=== PATIENT | female | born 1970 | race Caucasian/White ===

== ENCOUNTER 2019-06-14 15:12 | Emergency (ER) | payer SELFPAY ==
--- NOTE | 2019-06-14 15:40 | EDM.PDOC ---
ED HPI GENERAL MEDICAL PROBLEM - General Stated Complaint: lower ABD PAIN Time Seen by Provider: 06/14/19 15:12 Source of Information: Reports: Patient History Limitations: Reports: No Limitations - History of Present Illness INITIAL COMMENTS - FREE TEXT/NARRATIVE: 49 y.o.w.f with a h/o gastric bypass surgery in the distant past, came to the ED due to pain at her mid lower abd. 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 No Trauma. + No N/V/d, no other acute med issues BP 146/82 RR 17 Pulse ox 97% on RA Temp 36.8 Pulse 72 Onset Date: 06/14/19 Onset Time: 08:00 Duration: Hour(s):, Intermittent Location: Reports: Pelvis Quality: Reports: Ache, Burning Severity: Moderate Improves with: Reports: Medication Worsens with: Reports: Other Context: Reports: Other Associated Symptoms: Reports: Other (lower abd.dyscomfort) lower abd Pain Score (Numeric/FACES): 4 - Related Data Allergies Allergy/AdvReac Type Severity Reaction Status Date / Time No Known Allergies Allergy Verified 06/14/19 15:48 Home Meds: Home Meds Ciprofloxacin HCl [Cipro] 500 mg PO BID #20 tablet 06/14/19 [Rx] Cyanocobalamin (Vitamin B-12) [Vitamin B-12] 0 mcg PO DAILY 06/14/19 [History] Iron 0 mg PO DAILY 06/14/19 [History] Multivitamin [Multivitamins] 1 each PO DAILY 06/14/19 [History] Phenazopyridine HCl [Pyridium] 100 mg PO TID #9 tablet 06/14/19 [Rx] ED ROS GENERAL - Review of Systems Review Of Systems: See Below Constitutional: Reports: No Symptoms HEENT: Reports: No Symptoms Respiratory: Reports: No Symptoms Cardiovascular: Reports: No Symptoms Endocrine: Reports: No Symptoms GI/Abdominal: Reports: Abdominal Pain : Reports: No Symptoms Musculoskeletal: Reports: No Symptoms Skin: Reports: No Symptoms Neurological: Reports: No Symptoms Psychiatric: Reports: No Symptoms Hematologic/Lymphatic: Reports: No Symptoms Immunologic: Reports: No Symptoms ED EXAM, GI/ABD - Physical Exam Exam: See Below Exam Limited By: No Limitations General Appearance: Alert, WD/WN, Mild Distress Eyes: Bilateral: Normal Appearance Ears: Normal External Exam Nose: Normal Inspection Throat/Mouth: Normal Inspection, Normal Lips, Normal Voice, No Airway Compromise Head: Atraumatic, Normocephalic Neck: Normal Inspection, Supple, Non-Tender, Full Range of Motion Respiratory/Chest: No Respiratory Distress, Lungs Clear, Normal Breath Sounds, No Accessory Muscle Use, Chest Non-Tender Cardiovascular: Normal Peripheral Pulses, Regular Rate, Rhythm, No Edema, No Gallop GI/Abdominal Exam: Normal Bowel Sounds, No Organomegaly, No Distention, No Abnormal Bruit, Pelvis Stable, Tender (suprapubic tenderness) (Female) Exam: Deferred Rectal (Female) Exam: Deferred Back Exam: Normal Inspection, Full Range of Motion Extremities: Normal Inspection, Normal Range of Motion Neurological: Alert, Oriented, CN II-XII Intact, Normal Cognition, Normal Gait Psychiatric: Normal Affect, Normal Mood Skin Exam: Warm, Dry, Intact, Normal Color, No Rash Lymphatic: No Adenopathy Course - Vital Signs Text/Narrative:: 49 y.o.w.f with a h/o gastric bypass surgery in the distant past, came to the ED due to pain at her mid lower abd. 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 No Trauma. + No N/V/d, no other acute med issues BP 146/82 RR 17 Pulse ox 97% on RA Temp 36.8 Pulse 72 PE: WNWD =WF with lower abd. pain Labs": UA pos for UTI Impression: UTI Tx: Pyridium, Levofloxacin Reexam: Improved Plan: D/C with instructions Last Recorded V/S: Last Vital Signs Temp 36.7 C 06/14/19 16:15 Pulse 71 06/14/19 16:15 Resp 16 06/14/19 16:15 BP 123/77 06/14/19 16:15 Pulse Ox 98 06/14/19 16:15 - Orders/Labs/Meds Labs: Laboratory Tests 06/14/19 06/14/19 Range/Units 15:41 15:41 Urine Color Yellow (YELLOW) Urine Appearance Clear (CLEAR) Urine pH 6.5 (5.0-6.5) Ur Specific [place] 1.015 (1.010-1.025) Urine Protein Negative (NEGATIVE) mg/dL Urine Glucose (UA) Normal (NORMAL) mg/dL Urine Ketones Negative (NEGATIVE) mg/dL Urine Occult Blood Negative (NEGATIVE) Urine Nitrite Negative (NEGATIVE) Urine Bilirubin Small H (NEGATIVE) Urine Urobilinogen 1 H (NEGATIVE) mg/dL Ur Leukocyte Esterase Moderate H (NEGATIVE) Urine RBC 0-5 (0-5) Urine WBC 5-10 H (0-5) Ur Squamous Epith Cells Few H (NS,R,O) Urine Bacteria Few H (NS) Urine HCG, Qual Negative (NEGATIVE) Meds: Medications Discontinued Medications Generic Name Dose Route Start Last Admin Trade Name Annabella PRN Reason Stop Dose Admin Levofloxacin 500 mg 06/14/19 16:06 06/14/19 16:22 Levaquin PO 06/14/19 16:07 500 mg ONETIME ONE Administration Phenazopyridine HCl 95 mg 06/14/19 19:00 Urinary Pain Relief PO TIDPC TASHA Phenazopyridine HCl 95 mg 06/14/19 16:19 06/14/19 16:22 Urinary Pain Relief PO 06/14/19 16:20 95 mg ONETIME ONE Administration Departure - Departure Time of Disposition: 16:13 Disposition: Home, Self-Care 01 Condition: Good Clinical Impression: UTI (urinary tract infection) Qualifiers: Urinary tract infection type: acute cystitis Hematuria presence: without hematuria Qualified Code(s): N30.00 - Acute cystitis without hematuria - Discharge Information Prescriptions: Ciprofloxacin HCl [Cipro] 500 mg PO BID #20 tablet Phenazopyridine HCl [Pyridium] 100 mg PO TID #9 tablet Instructions: Urinary Tract Infection, Adult, [id number] Referrals: PCP,None [Primary Care Provider] - Forms: ED Department Discharge Additional Instructions: Please increase water intake, please take the meds as recommended, please f/u, come back if your symptoms get worse acutely
[2019-06-14] MEDS ORDERED: Levofloxacin 500 MG Tab PO ONE (16:06)
[2019-06-14] MEDS ORDERED: Phenazopyridine 95 MG Tab PO ONE (16:19)
[2019-06-14] MEDS ORDERED: Phenazopyridine 95 MG Tab PO SCH (19:00)
== END 2019-06-14 16:24 | disposition home or self-care (01) ==
LOC: FB.ED 15:12
DX: N30.00 Acute cystitis without hematuria (principal); Z79.899 Other long term (current) drug therapy
CPT/HCPCS: 81001; 81025; 99283; 99284; A9270

== ENCOUNTER 2019-08-06 17:13 | Emergency (ER) | payer MEDICAID ==
[2019-08-06] MEDS ORDERED: HYDROmorphone 2 MG/ML SDV IVPUSH ONE (17:53)
[2019-08-06] MEDS ORDERED: Ketorolac 30 MG/ML SDV IVPUSH ONE (17:54)
[2019-08-06] MEDS ORDERED: Ondansetron 4 MG/2 ML SDV IVPUSH ONE ×2 (17:54→18:32)
[2019-08-06] MEDS ORDERED: Potassium Chloride 20 MEQ Tab.ER PO ONE (18:13)
--- NOTE | 2019-08-06 18:15 | EDM.PDOC ---
ED HPI GENERAL MEDICAL PROBLEM - General Chief Complaint: Abdominal Pain Stated Complaint: PAIN IN STOMACH Time Seen by Provider: 08/06/19 18:00 Source of Information: Reports: Patient History Limitations: Reports: No Limitations - History of Present Illness INITIAL COMMENTS - FREE TEXT/NARRATIVE: Presents with low abdominal/pelvic pain x 1.5 years, low-grade initially, became worse in February 2019. The pain is described as constant menstrual pain, the severity of which waxes and wanes, and radiates to the lower back. She denies vaginal bleeding at this time. The patient was treated at [facility] ED last night. A pelvic exam was performed. An ultrasound revealed good flow to both ovaries, bilateral complex adnexal lesions and inhomogeneous uterine echotexture possibly due to adenomyosis. No lab work was done. She was prescribed Percocet 5/325 (#6 tabs) but the pain is not controlled with one tablet. 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 Denies: Appendectomy, Cholecystectomy Female Surgical History: Reports: Tubal Ligation (2012) Social & Family History - Tobacco Use Smoking Status *Q: Never Smoker - Alcohol Use Alcohol Use History: No ED ROS GENERAL - Review of Systems Review Of Systems: Comprehensive ROS is negative, except as noted in HPI. ED EXAM, GI/ABD - Physical Exam Exam: See Below Exam Limited By: No Limitations General Appearance: Alert, WD/WN, No Apparent Distress Ears: Normal External Exam Nose: Normal Inspection Throat/Mouth: No Airway Compromise Head: Atraumatic, Normocephalic Neck: Full Range of Motion Respiratory/Chest: No Respiratory Distress, Lungs Clear, Normal Breath Sounds Cardiovascular: Regular Rate, Rhythm, No Murmur GI/Abdominal Exam: Normal Bowel Sounds, Soft, No Distention, Tender (moderate suprapubic, RLQ and LLQ). No: Guarding, Rebound Back Exam: Full Range of Motion. No: CVA Tenderness (R), CVA Tenderness (L) Extremities: Normal Range of Motion Neurological: Alert, Normal Cognition, No Motor/Sensory Deficits Psychiatric: Normal Affect, Normal Mood Skin Exam: Warm, Dry, Intact Course - Vital Signs Last Recorded V/S: Last Vital Signs Temp 36.2 C 08/06/19 17:20 Pulse 66 08/06/19 17:20 Resp 16 08/06/19 17:20 BP 157/84 H 08/06/19 17:20 Pulse Ox 100 08/06/19 17:20 - Orders/Labs/Meds Orders: Active Orders 24 hr Category Date Time Status Abdomen Pelvis w Cont [CT] Stat Exams 08/06/19 18:14 Taken CHLAMYDIA/GC AMPLIFICATION Stat Lab 08/06/19 17:40 Received Labs: Laboratory Tests 08/06/19 08/06/19 08/06/19 Range/Units 17:35 17:35 17:35 WBC 11.0 (4.5-12.0) X10-3/uL RBC 4.80 (3.23-5.20) x10(6)uL Hgb 13.8 (11.5-15.5) g/dL Hct 41.5 (30.0-51.3) % MCV 86.4 (80-96) fL MCH 28.8 (27.7-33.6) pg MCHC 33.3 (32.2-35.4) g/dL RDW 13.2 (11.5-15.5) % Plt Count 368 (125-369) X10(3)uL MPV 8.6 (7.4-10.4) fL Neut % (Auto) 50.7 (46-82) % Lymph % (Auto) 38.4 H (13-37) % [place] % (Auto) 6.9 (4-12) % Eos % (Auto) 2 (1.0-5.0) % Baso % (Auto) 2 (0-2) % Neut # (Auto) 5.5 (1.6-8.3) # Lymph # (Auto) 4.2 (0.6-5.0) # [place] # (Auto) 0.8 (0.0-1.3) # Eos # (Auto) 0.3 (0.0-0.8) # Baso # (Auto) 0.2 (0.0-0.2) # Sodium 139 (135-145) mmol/L Potassium 3.0 L (3.5-5.3) mmol/L Chloride 103 (100-110) mmol/L Carbon Dioxide 23 (21-32) mmol/L BUN 10 (7-18) mg/dL Creatinine 0.8 (0.55-1.02) mg/dL Est Cr Clr Drug Dosing TNP Estimated GFR (MDRD) > 60 (>60) BUN/Creatinine Ratio 12.5 (9-20) Glucose 109 (80-116) mg/dL Calcium 9.0 (8.6-10.2) mg/dL Magnesium 1.7 L (1.8-2.5) mg/dL Total Bilirubin 0.5 (0.1-1.3) mg/dL AST 17 (5-25) IU/L ALT 18 (12-36) U/L Alkaline Phosphatase 76 (56-112) IU/L Total Protein 7.3 (6.0-8.0) g/dL Albumin 3.8 (3.5-5.2) g/dL Globulin 3.5 g/dL Albumin/Globulin Ratio 1.1 Amylase 59 (25-115) U/L Urine Color (YELLOW) Urine Appearance (CLEAR) Urine pH (5.0-6.5) Ur Specific [place] (1.010-1.025) Urine Protein (NEGATIVE) mg/dL Urine Glucose (UA) (NORMAL) mg/dL Urine Ketones (NEGATIVE) mg/dL Urine Occult Blood (NEGATIVE) Urine Nitrite (NEGATIVE) Urine Bilirubin (NEGATIVE) Urine Urobilinogen (NEGATIVE) mg/dL Ur Leukocyte Esterase (NEGATIVE) Urine RBC (0-5) Urine WBC (0-5) Ur Squamous Epith Cells (NS,R,O) Urine Bacteria (NS) Urine HCG, Qual (NEGATIVE) 11/15/19 11/15/19 Range/Units 17:40 17:40 WBC (4.5-12.0) X10-3/uL RBC (3.23-5.20) x10(6)uL Hgb (11.5-15.5) g/dL Hct (30.0-51.3) % MCV (80-96) fL MCH (27.7-33.6) pg MCHC (32.2-35.4) g/dL RDW (11.5-15.5) % Plt Count (125-369) X10(3)uL MPV (7.4-10.4) fL Neut % (Auto) (46-82) % Lymph % (Auto) (13-37) % [place] % (Auto) (4-12) % Eos % (Auto) (1.0-5.0) % Baso % (Auto) (0-2) % Neut # (Auto) (1.6-8.3) # Lymph # (Auto) (0.6-5.0) # [place] # (Auto) (0.0-1.3) # Eos # (Auto) (0.0-0.8) # Baso # (Auto) (0.0-0.2) # Sodium (135-145) mmol/L Potassium (3.5-5.3) mmol/L Chloride (100-110) mmol/L Carbon Dioxide (21-32) mmol/L BUN (7-18) mg/dL Creatinine (0.55-1.02) mg/dL Est Cr Clr Drug Dosing Estimated GFR (MDRD) (>60) BUN/Creatinine Ratio (9-20) Glucose (80-116) mg/dL Calcium (8.6-10.2) mg/dL Magnesium (1.8-2.5) mg/dL Total Bilirubin (0.1-1.3) mg/dL AST (5-25) IU/L ALT (12-36) U/L Alkaline Phosphatase (56-112) IU/L Total Protein (6.0-8.0) g/dL Albumin (3.5-5.2) g/dL Globulin g/dL Albumin/Globulin Ratio Amylase (25-115) U/L Urine Color Yellow (YELLOW) Urine Appearance Clear (CLEAR) Urine pH 5.0 (5.0-6.5) Ur Specific [place] 1.010 (1.010-1.025) Urine Protein Negative (NEGATIVE) mg/dL Urine Glucose (UA) Normal (NORMAL) mg/dL Urine Ketones 15 H (NEGATIVE) mg/dL Urine Occult Blood Negative (NEGATIVE) Urine Nitrite Negative (NEGATIVE) Urine Bilirubin Negative (NEGATIVE) Urine Urobilinogen Normal (NEGATIVE) mg/dL Ur Leukocyte Esterase Negative (NEGATIVE) Urine RBC 0-5 (0-5) Urine WBC 0-5 (0-5) Ur Squamous Epith Cells Few H (NS,R,O) Urine Bacteria Moderate H (NS) Urine HCG, Qual Negative (NEGATIVE) Meds: Medications Discontinued Medications Generic Name Dose Route Start Last Admin Trade Name Freq PRN Reason Stop Dose Admin Hydromorphone HCl 1 mg 08/06/19 17:53 08/06/19 18:01 Dilaudid IVPUSH 08/06/19 17:54 1 mg ONETIME ONE Administration Iopamidol 100 ml 08/06/19 18:26 08/06/19 18:51 Isovue-370 (76%) IV 08/06/19 18:27 100 ml . DIRECTED ONE Administration Ketorolac Tromethamine 15 mg 08/06/19 17:54 08/06/19 17:59 Toradol IVPUSH 08/06/19 17:55 15 mg ONETIME ONE Administration Ondansetron HCl 4 mg 08/06/19 17:54 08/06/19 18:01 Zofran IVPUSH 08/06/19 17:55 4 mg ONETIME ONE Administration Ondansetron HCl 4 mg 08/06/19 18:32 08/06/19 18:36 Zofran IVPUSH 08/06/19 18:33 4 mg ONETIME ONE Administration Potassium Chloride 40 meq 08/06/19 18:13 08/06/19 18:44 Klor-Con M20 PO 08/06/19 18:14 40 meq ONETIME ONE Administration Promethazine HCl 25 mg 08/06/19 19:07 08/06/19 19:31 Phenergan IM 08/06/19 19:08 25 mg ONETIME ONE Administration - Radiology Interpretation Free Text/Narrative:: CT Abd/Pelvis w/ IV contrast: Circumscribed fluid collection in the pelvis measuring 7.5 cm of unclear etiology, does not appear infectious. Possible etiology includes mesenteric or urachal cyst. No bowel obstruction. Enlarged ovaries. (per Dr. Mclain) - Re-Assessments/Exams Free Text/Narrative Re-Assessment/Exam: 08/06/19 19:56 Pain improved after Dilaudid 1mg IV and Toradol 15mg IV. Nausea improved after Phenergan 25mg IM (no improvement after Zofran 8mg IV). Departure - Departure Time of Disposition: 19:59 Disposition: Home, Self-Care 01 Condition: Good Clinical Impression: Adenomyosis of uterus, Hypokalemia Ovarian cyst Qualifiers: Laterality: bilateral Qualified Code(s): N83.201 - Unspecified ovarian cyst, right side; N83.202 - Unspecified ovarian cyst, left side - Discharge Information *PRESCRIPTION DRUG MONITORING PROGRAM REVIEWED*: Yes *COPY OF PRESCRIPTION DRUG MONITORING REPORT IN PATIENT LANCE: Not Applicable Prescriptions: Acetaminophen/oxyCODONE [Percocet 325-5 MG] 1 - 2 tab PO Q6HR #12 tablet Promethazine [Phenergan] 25 mg PO Q6H PRN #12 tab PRN Reason: Nausea/Vomiting Instructions: Ovarian Cyst, [id number], Nausea and Vomiting, Adult, Easy-to- Read, Hypokalemia Referrals: Karol Martin FLEXOGRAPHIC PRESS HELPER [Primary Care Provider] - Forms: ED Department Discharge Additional Instructions: Fill prescriptions for Percocet and Phenergan and take as directed. Keep your appointment with Belle MULTIPLE DRUM SANDER next Friday08/11/19. Return to the ER if symptoms worsen. - My Orders Last 24 Hours: My Active Orders 08/06/19 17:40 CHLAMYDIA/GC AMPLIFICATION Stat 08/06/19 18:14 Abdomen Pelvis w Cont [CT] Stat - Assessment/Plan Last 24 Hours: My Active Orders 08/06/19 17:40 CHLAMYDIA/GC AMPLIFICATION Stat 08/06/19 18:14 Abdomen Pelvis w Cont [CT] Stat
[2019-08-06] MEDS ORDERED: Iopamidol 755 Mg/ML 100 ML Bottle IV ONE (18:26)
[2019-08-06] MEDS ORDERED: Promethazine 25 MG/ML SDV IM ONE (19:07)
[2019-08-06] MEDS ORDERED: Promethazine 25 MG Tab PO ONE (19:58)
[2019-08-06] MEDS ORDERED: Promethazine 25 MG Tab ONE (20:01)
--- NOTE | 2019-08-09 13:53 | CT ---
INDICATION: Abdominal pain, lower, for [address] ABDOMEN AND PELVIS WITH IV CONTRAST: Spiral 3.75 mm axial sections were obtained through the abdomen and pelvis with 100 mL Isovue 370 at 2 mL/second, with sagittal and coronal reconstructions, 08/06/19, and compared with . Total exam DLP = 1,085.17 mGy-cm. The lower lung apple and pleural spaces visualized appeared negative for active disease. The upper abdominal organs appeared normal, except to note evidence of previous surgery, apparently gastric bariatric, and what appears to be a small fixed hiatal hernia. No retroperitoneal mass was seen. The appendix was again not visualized. No evidence of free air or bowel obstruction was seen with gas and stool in the rectum. The uterus is again noted to be somewhat bulky in appearance and somewhat heterogeneous in its myometrium, suggesting the possibility of either adenomyosis or fibroid changes intramurally. The ovaries are prominent bilaterally, measuring 4.98 cm on the right and 4.6 cm on the left with multiple low density areas compatible with follicles present. No single focal mass was seen in the uterus of any significance. Question the possibility of polycystic ovarian syndrome. Anterior to the uterine body and superior to the urinary bladder, there is a roughly oval to linear shaped collection of fluid, which appears to be fairly well-circumscribed, measuring 76 x 19 x 19 mm. The larger measurement is transverse. There are some small bowel loops that are impinging on the cranial surface of this fluid collection. It does not appear to be free in the pelvis. Etiology is indeterminate. An abscess is felt to be unlikely, since there is no thickened wall or fat stranding adjacent to it. An unusual mesenteric or urachal cyst is felt to be unlikely, since none was definitely present on the previous examination, although there was a fluid collection off to the right at that level on the previous study. This finding should be correlated clinically , therefore. No additional mass lesions or free fluid collections were identified. No free fluid was noted in the posterior cul-de-sac. IMPRESSION: 1. No bowel obstruction is seen at this time. 2. Fluid collection anterior to the uterus and superior to the urinary bladder , etiology indeterminate, could represent a cystic mass, most likely benign, unlikely to be inflammatory. Followup may be warranted. 3. Bulky uterus with low density areas, question adenomyosis versus intramural fibroid changes. 4. Prominent ovaries bilaterally with multiple follicles, question possibility of PCOS. 5. Appendix not visualized. 6. Possible small fixed hiatal hernia. 7. Post gastric surgery. Report was called to Dr. Sinclair at 1930 hours on 08/06/19. [facility]
[2019-08-12 01:07] LABS: CHLAMYDIA TRACHOMATIS, NAA Negative (Negative); NEISSERIA GONORRHOEAE, NAA Negative (Negative)
== END 2019-08-06 20:20 | disposition home or self-care (01) ==
LOC: FB.ED 17:13
DX: D26.9 Other benign neoplasm of uterus, unspecified (principal); E87.6 Hypokalemia; N83.202 Unspecified ovarian cyst, left side; Z98.51 Tubal ligation status; Z98.84 Bariatric surgery status
CPT/HCPCS: 36415; 74177; 80053; 81001; 81025; 82150; 83735; 85025; 87491; 87591; 96372; 96374; 96375; 96376; 99284; A9270; J1170; J1885; J2405; J2550; Q9967; 99283

== ENCOUNTER 2019-08-09 09:44 | Emergency (ER) | payer MEDICAID ==
[2019-08-09] MEDS ORDERED: Sodium Chloride 0.9% 10 ML Syringe FLUSH PRN (09:55)
[2019-08-09] MEDS ORDERED: Ketorolac 30 MG/ML SDV IVPUSH ONE (09:59)
[2019-08-09] MEDS ORDERED: Sodium Chloride 0.9% 1,000 ML IV ONE (09:59)
[2019-08-09] MEDS ORDERED: Morphine 2 MG/ML Syringe IV ONE (10:26)
[2019-08-09] MEDS ORDERED: Morphine 2 MG/ML Syringe IVPUSH ONE (12:16)
--- NOTE | 2019-08-09 12:24 | EDM.PDOC ---
ED HPI GENERAL MEDICAL PROBLEM - General Chief Complaint: Abdominal Pain Stated Complaint: ABD PAIN Time Seen by Provider: 08/09/19 09:50 Source of Information: Reports: Patient - History of Present Illness INITIAL COMMENTS - FREE TEXT/NARRATIVE: Patient presented to the ED because of pelvic pain for 2 months. The pain is over the bilateral adnexal area and suprapubic area. She has 3 abdominal/pelvic/ renal US and [address] abd/pelvis since June with the same findings. Thickened endometrium and mature follicular cyst. The pain is like a lbor pain with uterine contractions,10/10 with associated nausea and vomiting. Denies any urinary s/s, fever or chills. She is scheduled to see Dr Garvey-REEL CART OPERATOR at [facility] this coming friday. She is taking percocet 5 mg which is just taking the edge off. - Related Data Allergies Allergy/AdvReac Type Severity Reaction Status Date / Time No Known Allergies Allergy Verified 08/09/19 20:10 Home Meds: Home Meds Acetaminophen/oxyCODONE [Percocet 325-5 MG] 1 - 2 tab PO Q6HR #12 tablet [Rx] Promethazine [Phenergan] 25 mg PO Q6H PRN #12 tab 08/06/19 [Rx] Acetaminophen/oxyCODONE [Percocet 325-7.5 MG] 1 - 2 tab PO Q4H PRN #20 tab 08/09 [Rx] Ketorolac [Toradol] 10 mg PO Q8H PRN #15 tab 08/09/19 [Rx] Terbutaline Sulfate 5 mg PO TID #3 tablet 08/09/19 [Rx] Past Medical History - Past Health History Medical/Surgical History: Denies Medical/Surgical History - Past Surgical History GI Surgical History: Reports: Bariatric Procedure ([place] [facility] 2008). Denies: Appendectomy, Cholecystectomy Female Surgical History: Reports: Tubal Ligation (2012) Social & Family History - Family History Family Medical History: Noncontributory - Caffeine Use Caffeine Use: Reports: Soda ED ROS GENERAL - Review of Systems Review Of Systems: See Below Constitutional: Reports: No Symptoms HEENT: Reports: No Symptoms Respiratory: Reports: No Symptoms Cardiovascular: Reports: No Symptoms Endocrine: Reports: No Symptoms GI/Abdominal: Reports: Abdominal Pain, Nausea, Vomiting : Reports: No Symptoms Musculoskeletal: Reports: No Symptoms Skin: Reports: No Symptoms Neurological: Reports: No Symptoms ED EXAM, GI/ABD - Physical Exam Exam: See Below Exam Limited By: No Limitations General Appearance: Alert, WD/WN, No Apparent Distress Ears: Normal External Exam, Normal Canal, Hearing Grossly Normal, Normal TMs Nose: Normal Inspection, Normal Mucosa, No Blood Throat/Mouth: Normal Inspection, Normal Lips, Normal Teeth Head: Atraumatic, Normocephalic Neck: Normal Inspection, Supple, Non-Tender, Full Range of Motion Respiratory/Chest: No Respiratory Distress, Lungs Clear, Normal Breath Sounds, No Accessory Muscle Use, Chest Non-Tender Cardiovascular: Normal Peripheral Pulses, Regular Rate, Rhythm, No Edema, No Gallop GI/Abdominal Exam: Normal Bowel Sounds, Soft, No Organomegaly, No Distention, No Abnormal Bruit, Other (tenderness over the bilateral adnexal area and suprapubic area.) Extremities: Normal Inspection, Normal Range of Motion, Non-Tender, No Pedal Edema, Normal Capillary Refill Neurological: Alert, Oriented, CN II-XII Intact, Normal Cognition Psychiatric: Normal Affect, Normal Mood Skin Exam: Warm, Dry, Intact, Normal Color Course - Vital Signs Text/Narrative:: labs reviewed with patient NS 1 liter bolus toradol 30 mg IV x1 morphine 4 mg IV x1 Consult was done with Dr Wright the patient to be started to NSAIDS and percocet Last Recorded V/S: Last Vital Signs Temp 36.8 C 08/09/19 09:44 Pulse 72 08/09/19 13:00 Resp 18 08/09/19 13:00 BP 155/48 H 08/09/19 13:00 Pulse Ox 99 08/09/19 13:00 - Orders/Labs/Meds Orders: Active Orders 24 hr Category Date Time Status Saline Lock Insert [OM.PC] Routine Oth 08/09/19 09:55 Ordered Labs: Laboratory Tests 08/09/19 08/09/19 08/09/19 Range/Units 10:21 10:21 10:21 WBC 14.6 H (4.5-12.0) X10-3/uL RBC 4.93 (3.23-5.20) x10(6)uL Hgb 13.9 (11.5-15.5) g/dL Hct 42.3 (30.0-51.3) % MCV 85.9 (80-96) fL MCH 28.1 (27.7-33.6) pg MCHC 32.8 (32.2-35.4) g/dL RDW 13.1 (11.5-15.5) % Plt Count 373 H (125-369) X10(3)uL MPV 8.7 (7.4-10.4) fL Add Manual Diff Yes Neutrophils % (Manual) 71 (46-82) % Lymphocytes % (Manual) 22 (13-37) % Monocytes % (Manual) 7 (4-12) % Sodium 138 (135-145) mmol/L Potassium 3.7 (3.5-5.3) mmol/L Chloride 99 L (100-110) mmol/L Carbon Dioxide 24 (21-32) mmol/L BUN 10 (7-18) mg/dL Creatinine 0.8 (0.55-1.02) mg/dL Est Cr Clr Drug Dosing TNP Estimated GFR (MDRD) > 60 (>60) BUN/Creatinine Ratio 12.5 (9-20) Glucose 121 H (80-116) mg/dL Calcium 9.5 (8.6-10.2) mg/dL Total Bilirubin 0.5 (0.1-1.3) mg/dL AST 19 D (5-25) IU/L ALT 17 (12-36) U/L Alkaline Phosphatase 77 (56-112) IU/L Total Protein 7.6 (6.0-8.0) g/dL Albumin 3.9 (3.5-5.2) g/dL Globulin 3.7 g/dL Albumin/Globulin Ratio 1.1 Amylase 48 (25-115) U/L Lipase 102 (73-393) U/L HCG, Quant (<5) mIU/mL Urine Color (YELLOW) Urine Appearance (CLEAR) Urine pH (5.0-6.5) Ur Specific [place] (1.010-1.025) Urine Protein (NEGATIVE) mg/dL Urine Glucose (UA) (NORMAL) mg/dL Urine Ketones (NEGATIVE) mg/dL Urine Occult Blood (NEGATIVE) Urine Nitrite (NEGATIVE) Urine Bilirubin (NEGATIVE) Urine Urobilinogen (NEGATIVE) mg/dL Ur Leukocyte Esterase (NEGATIVE) Urine RBC (0-5) Urine WBC (0-5) Ur Squamous Epith Cells (NS,R,O) Urine Bacteria (NS) 08/09/19 08/09/19 Range/Units 10:21 11:40 WBC (4.5-12.0) X10-3/uL RBC (3.23-5.20) x10(6)uL Hgb (11.5-15.5) g/dL Hct (30.0-51.3) % MCV (80-96) fL MCH (27.7-33.6) pg MCHC (32.2-35.4) g/dL RDW (11.5-15.5) % Plt Count (125-369) X10(3)uL MPV (7.4-10.4) fL Add Manual Diff Neutrophils % (Manual) (46-82) % Lymphocytes % (Manual) (13-37) % Monocytes % (Manual) (4-12) % Sodium (135-145) mmol/L Potassium (3.5-5.3) mmol/L Chloride (100-110) mmol/L Carbon Dioxide (21-32) mmol/L BUN (7-18) mg/dL Creatinine (0.55-1.02) mg/dL Est Cr Clr Drug Dosing Estimated GFR (MDRD) (>60) BUN/Creatinine Ratio (9-20) Glucose (80-116) mg/dL Calcium (8.6-10.2) mg/dL Total Bilirubin (0.1-1.3) mg/dL AST (5-25) IU/L ALT (12-36) U/L Alkaline Phosphatase (56-112) IU/L Total Protein (6.0-8.0) g/dL Albumin (3.5-5.2) g/dL Globulin g/dL Albumin/Globulin Ratio Amylase (25-115) U/L Lipase (73-393) U/L HCG, Quant < 5 L (<5) mIU/mL Urine Color Red (YELLOW) Urine Appearance Cloudy (CLEAR) Urine pH 6.0 (5.0-6.5) Ur Specific [place] 1.015 (1.010-1.025) Urine Protein 30 H (NEGATIVE) mg/dL Urine Glucose (UA) Normal (NORMAL) mg/dL Urine Ketones 15 H (NEGATIVE) mg/dL Urine Occult Blood Large H (NEGATIVE) Urine Nitrite Negative (NEGATIVE) Urine Bilirubin Negative (NEGATIVE) Urine Urobilinogen Normal (NEGATIVE) mg/dL Ur Leukocyte Esterase Moderate H (NEGATIVE) Urine RBC Semi-packed H (0-5) Urine WBC 5-10 H (0-5) Ur Squamous Epith Cells Few H (NS,R,O) Urine Bacteria Few H (NS) Meds: Medications Discontinued Medications Generic Name Dose Route Start Last Admin Trade Name Freq PRN Reason Stop Dose Admin Sodium Chloride 1,000 mls @ 999 mls/hr 08/09/19 09:59 08/09/19 10:15 Normal Saline IV 08/09/19 10:59 999 mls/hr .BOLUS ONE Administration Ketorolac Tromethamine 30 mg 08/09/19 09:59 08/09/19 10:12 Toradol IVPUSH 08/09/19 10:00 30 mg ONETIME ONE Administration Morphine Sulfate 4 mg 08/09/19 10:26 08/09/19 19:53 Morphine IV 08/09/19 10:27 Not Given ONETIME ONE Morphine Sulfate 4 mg 08/09/19 12:16 08/09/19 12:43 Morphine IVPUSH 08/09/19 12:17 4 mg ONETIME ONE Administration Sodium Chloride 10 ml 08/09/19 09:55 08/09/19 10:13 Saline Flush FLUSH 10 ml ASDIRECTED PRN Administration Keep Vein Open Departure - Departure Time of Disposition: 12:20 Disposition: Home, W Home Health Agency 06 Condition: Good Clinical Impression: Pelvic pain - Discharge Information Prescriptions: Acetaminophen/oxyCODONE [Percocet 325-7.5 MG] 1 - 2 tab PO Q4H PRN #20 tab PRN Reason: Pain Ketorolac [Toradol] 10 mg PO Q8H PRN #15 tab PRN Reason: Pain Instructions: Pelvic Pain, Female Referrals: PCP,Not In Area [Primary Care Provider] - Forms: ED Department Discharge Additional Instructions: please read discharge instructions on pelvic pain toradol 10 mg every 8 hours for 3 days regardless whether you're in pain or not percocet 7.5 mg , take 1-2 tablets every 4-6 hours as needed for pain promethazine 50 mg every 6 hours as needed for nausea follow up with Dr Garvey on Friday as scheduled - My Orders Last 24 Hours: My Active Orders 08/09/19 09:55 Saline Lock Insert [OM.PC] Routine - Assessment/Plan Last 24 Hours: My Active Orders 08/09/19 09:55 Saline Lock Insert [OM.PC] Routine
== END 2019-08-09 13:15 | disposition home health service (06) ==
LOC: FB.ED 09:44
DX: R10.2 Pelvic and perineal pain (principal)
CPT/HCPCS: 36415; 80053; 81001; 82150; 83690; 84702; 85025; 96361; 96374; 96375; 99284; J1885; J2270; J7030

== ENCOUNTER 2019-08-09 18:41 | Emergency (ER) | payer MEDICAID ==
[2019-08-09] MEDS ORDERED: Ketorolac 30 MG/ML SDV IVPUSH ONE (19:04)
[2019-08-09] MEDS ORDERED: Morphine 2 MG/ML Syringe IVPUSH ONE (19:04)
[2019-08-09] MEDS ORDERED: Terbutaline 1 MG/ML SDV SUBCUT ONE (19:14)
[2019-08-09] MEDS ORDERED: Ketorolac 60 MG/2 ML SDV IM ONE (20:06)
[2019-08-09] MEDS ORDERED: Morphine 10 MG/ML SDV IM ONE (20:06)
[2019-08-09] MEDS ORDERED: Morphine 2 MG/ML Syringe ONE (20:09)
--- NOTE | 2019-08-09 20:14 | EDM.PDOC ---
ED HPI GENERAL MEDICAL PROBLEM - General Stated Complaint: ABD PAIN Time Seen by Provider: 08/09/19 18:45 Source of Information: Reports: Patient - History of Present Illness INITIAL COMMENTS - FREE TEXT/NARRATIVE: Patient presented to the ED because of pelvic pain. She was seen this morning because of an ongoing pelvic pain. She was discharge with ibuprofen and percocet but apparently the pain came back and the percocet didn't help at all. The pain is like labor pain she said with associated nausea but no vomiting. Lower Abdomen Pain Score (Numeric/FACES): 10 - Related Data Allergies Allergy/AdvReac Type Severity Reaction Status Date / Time No Known Allergies Allergy Verified 08/09/19 20:10 Home Meds: Home Meds Acetaminophen/oxyCODONE [Percocet 325-5 MG] 1 - 2 tab PO Q6HR #12 tablet [Rx] Promethazine [Phenergan] 25 mg PO Q6H PRN #12 tab 08/06/19 [Rx] Acetaminophen/oxyCODONE [Percocet 325-7.5 MG] 1 - 2 tab PO Q4H PRN #20 tab 08/09 [Rx] Ketorolac [Toradol] 10 mg PO Q8H PRN #15 tab 08/09/19 [Rx] Terbutaline Sulfate 5 mg PO TID #3 tablet 08/09/19 [Rx] Past Medical History - Past Health History Medical/Surgical History: Denies Medical/Surgical History - Past Surgical History GI Surgical History: Reports: Bariatric Procedure ([facility] 2008). Denies: Appendectomy, Cholecystectomy Female Surgical History: Reports: Tubal Ligation (2012) Social & Family History - Family History Family Medical History: Noncontributory - Caffeine Use Caffeine Use: Reports: Soda ED ROS GENERAL - Review of Systems Review Of Systems: See Below Constitutional: Reports: No Symptoms HEENT: Reports: No Symptoms Respiratory: Reports: No Symptoms Cardiovascular: Reports: No Symptoms, Palpitations GI/Abdominal: Reports: Abdominal Pain, Nausea. Denies: Vomiting : Reports: No Symptoms Musculoskeletal: Reports: No Symptoms Skin: Reports: No Symptoms Neurological: Reports: No Symptoms Psychiatric: Reports: No Symptoms ED EXAM, RENAL/ - Physical Exam Exam: See Below Exam Limited By: No Limitations General Appearance: Alert, No Apparent Distress Ears: Normal External Exam, Normal Canal, Hearing Grossly Normal Nose: Normal Inspection, Normal Mucosa, No Blood Throat/Mouth: Normal Inspection, Normal Lips Head: Atraumatic, Normocephalic Neck: Normal Inspection, Supple, Non-Tender, Full Range of Motion Respiratory/Chest: No Respiratory Distress, Lungs Clear, Normal Breath Sounds, No Accessory Muscle Use, Chest Non-Tender Cardiovascular: Normal Peripheral Pulses, Regular Rate, Rhythm, No Edema, No Gallop, No JVD, No Murmur GI/Abdominal: Normal Bowel Sounds, Soft, Non-Tender, No Organomegaly, No Distention, No Abnormal Bruit, No Mass, Other (tenderness over the bilateral adnexal area) Course - Vital Signs Text/Narrative:: toradol 30 mg IV Morphine 4 mg IV Terbutaline 0.5 mg SC with significant relief of pain. Last Recorded V/S: Last Vital Signs Temp 36.6 C 08/09/19 20:25 Pulse 79 08/09/19 20:25 Resp 14 08/09/19 20:25 BP 121/61 08/09/19 20:25 Pulse Ox 98 08/09/19 20:25 - Orders/Labs/Meds Meds: Medications Discontinued Medications Generic Name Dose Route Start Last Admin Trade Name Itzq PRN Reason Stop Dose Admin Ketorolac Tromethamine 30 mg 08/09/19 19:04 Toradol IVPUSH 08/09/19 19:05 ONETIME ONE Ketorolac Tromethamine 60 mg 08/09/19 20:06 08/09/19 20:13 Toradol IM 08/09/19 20:07 60 mg ONETIME ONE Administration Morphine Sulfate 4 mg 08/09/19 19:04 Morphine IVPUSH 08/09/19 19:05 ONETIME ONE Morphine Sulfate 5 mg 08/09/19 20:06 08/09/19 20:11 Morphine IM 08/09/19 20:07 5 mg ONETIME ONE Administration Morphine Sulfate Confirm 08/09/19 20:09 Morphine Administered 08/09/19 20:10 Dose 2 mg .ROUTE .STK-MED ONE Terbutaline Sulfate 0.5 mg 08/09/19 19:14 08/09/19 19:23 Brethine SUBCUT 08/09/19 19:15 0.5 mg ONETIME ONE Administration Departure - Departure Time of Disposition: 20:10 Disposition: Home, Self-Care 01 Condition: Good Clinical Impression: Pelvic pain, Adenomyosis of uterus - Discharge Information Prescriptions: Terbutaline Sulfate 5 mg PO TID #3 tablet Instructions: Pelvic Pain, Female, [id number] Referrals: PCP,Unknown [Primary Care Provider] - Forms: ED Department Discharge Additional Instructions: please read discharge instructions on pelvic pain continue your percocet and toradol for pain phenergan for nausea terbutalin 5 mg 3 timws daily for 1 days
== END 2019-08-09 20:35 | disposition home or self-care (01) ==
LOC: FB.ED 18:41
DX: N80.0 Endometriosis of uterus (principal)
CPT/HCPCS: 96372; 99284; 99285; J1885; J2270; J3105

== ENCOUNTER 2022-08-10 04:17 | Emergency (ER) | payer MEDICAID, SELFPAY ==
[2022-08-10] MEDS ORDERED: Amoxicillin 500 MG Cap PO ONE (04:45)
== END 2022-08-10 05:00 | disposition home or self-care (01) ==
LOC: FB.ED 04:17
DX: H66.91 Otitis media, unspecified, right ear (principal)
CPT/HCPCS: 99282; A9270

== ENCOUNTER 2023-12-10 05:45 | Emergency (ER) | payer MEDICAID ==
[2023-12-10] MEDS: Ondansetron 4 MG/2 ML SDV IVPUSH ONE (06:22)
[2023-12-10] MEDS: HYDROmorphone 2 MG/ML SDV IVPUSH ONE ×3 (06:22→11:05)
[2023-12-10 06:27] LABS: BASOPHILS ABSOLUTE AUTO 0.1 x10-3/uL (0.0-0.1); BASOPHILS PERCENT AUTO 1.2 % (0.2-1.5); EOSINOPHILS PERCENT AUTO 0.7 % (0.6-8.1); HEMATOCRIT 38.8 % (34.2-48.2); HEMOGLOBIN 12.2 g/dL (11.4-15.5); LYMPHOCYTES ABSOLUTE AUTO 0.9 x10-3/uL (1.0-4.4); LYMPHOCYTES PERCENT AUTO 15.1 % (18.4-52.1); MEAN CORPUSCULAR HEMOGLOBIN 29.9 pg (23.9-33.9); MEAN CORPUSCULAR HGB CONC 31.4 g/dL (31.9-34.8); MEAN CORPUSCULAR VOLUME 95.1 fL (76.7-100.5); MEAN PLATELET VOLUME 7.7 fL (7.1-12.4); MONOCYTES ABSOLUTE AUTO 0.3 x10-3/uL (0.3-1.0); MONOCYTES PERCENT AUTO 5.4 % (4.4-15.7); NEUTROPHILS ABSOLUTE AUTO 4.7 x10-3/uL (1.5-6.3); NEUTROPHILS PERCENT AUTO 77.6 % (30.8-76.2); PLATELET COUNT,PLT 440 x10(3)uL (151-488); WHITE BLOOD CELL COUNT,WBC 6.1 x10-3/uL (3.0-10.3)
[2023-12-10 06:31] LABS: BLOOD UREA NITROGEN,BUN 13 mg/dL (7-18); BUN/CREATININE RATIO 18.6 (9-20); CALCIUM 9.7 mg/dL (8.6-10.2); CARBON DIOXIDE,CO2 29 mmol/L (21-32); CHLORIDE,CL 99 mmol/L (100-110); CREATININE 0.7 mg/dL (0.55-1.02); ESTIMATED GFR 105 mL/min (>60); GLUCOSE RANDOM 144 mg/dL (80-116); POTASSIUM,K 3.8 mmol/L (3.5-5.3); SODIUM,NA 138 mmol/L (135-145)
[2023-12-10 06:36] LABS: A/G RATIO 0.7; ALANINE AMINOTRANSFERASE,ALT 44 U/L (12-36); ALBUMIN 3.1 g/dL (3.5-5.2); ALKALINE PHOSPHATASE 127 IU/L (56-112); ASPARTATE AMNIOTRANSFERASE,AST 51 IU/L (5-25); BILIRUBIN TOTAL 0.5 mg/dL (0.1-1.3); PROTEIN TOTAL,TP 7.5 g/dL (6.0-8.0); RED BLOOD CELL COUNT 4.08 x10(6)uL (3.60-5.20)
[2023-12-10] MEDS: Sodium Chloride 0.9% 10 ML Syringe FLUSH PRN (06:36)
[2023-12-10] MEDS: Sodium Chloride 0.9% 1,000 ML IV SCH ×2 (06:37→09:54)
[2023-12-10] MEDS: Ondansetron 4 MG/2 ML SDV ONE (06:38)
[2023-12-10] MEDS: Iopamidol 755 Mg/ML 100 ML Bottle IV ONE (07:37)
[2023-12-10] MEDS ORDERED: Naloxone 0.4 MG/ML SDV IVPUSH PRN (07:42)
[2023-12-10] MEDS: Sodium Chloride 0.9% 1,000 ML IV ONE ×2 (08:37→10:04)
[2023-12-10] MEDS: Promethazine 12.5 MG in Sodium Chloride 0.9% 50 ML IV ONE (09:15)
== END 2023-12-10 11:40 ==
LOC: FB.ED 05:45
DX: K56.609 Unspecified intestinal obstruction, unspecified as to partial versus complete obstruction (principal); E66.9 Obesity, unspecified; Z68.28 Body mass index [BMI] 28.0-28.9, adult; Z79.899 Other long term (current) drug therapy; Z86.16 Personal history of COVID-19
CPT/HCPCS: 36415; 74177; 80053; 83605; 83735; 85025; 96361; 96374; 96375; 96376; 99285; J1170; J2405; J2550; J3490; J7030; Q9967

== ENCOUNTER 2024-01-29 13:21 | Emergency (ER) | payer MEDICAID ==
[2024-01-29 14:42] LABS: HEMATOCRIT 30.8 % (34.2-48.2); HEMOGLOBIN 9.6 g/dL (11.4-15.5); MEAN CORPUSCULAR HEMOGLOBIN 27.8 pg (23.9-33.9); MEAN CORPUSCULAR HGB CONC 31.3 g/dL (31.9-34.8); MEAN CORPUSCULAR VOLUME 88.7 fL (76.7-100.5); MEAN PLATELET VOLUME 6.9 fL (7.1-12.4); PLATELET COUNT,PLT 561 x10(3)uL (151-488); RED BLOOD CELL COUNT 3.47 x10(6)uL (3.60-5.20); RED CELL DISTRIBUTION WIDTH 18.7 % (12.3-16.5)
[2024-01-29 14:48] LABS: A/G RATIO 0.3; ALANINE AMINOTRANSFERASE,ALT 27 U/L (12-36); ALKALINE PHOSPHATASE 224 IU/L (56-112); ASPARTATE AMNIOTRANSFERASE,AST 21 IU/L (5-25); BILIRUBIN TOTAL 0.3 mg/dL (0.1-1.3); BLOOD UREA NITROGEN,BUN 39 mg/dL (7-18); BUN/CREATININE RATIO 8.9 (9-20); CARBON DIOXIDE,CO2 22 mmol/L (21-32); CHLORIDE,CL 94 mmol/L (100-110); ESTIMATED GFR 12 mL/min (>60); GLUCOSE RANDOM 105 mg/dL (80-116); POTASSIUM,K 4.8 mmol/L (3.5-5.3); PROTEIN TOTAL,TP 5.9 g/dL (6.0-8.0); SODIUM,NA 131 mmol/L (135-145)
[2024-01-29 14:50] LABS: BILIRUBIN,URINE NEGATIVE (NEGATIVE); GLUCOSE,URINE NORMAL (NORMAL); KETONES,URINE NEGATIVE (NEGATIVE); LEUKOCYTE ESTERASE,URINE LARGE (NEGATIVE); NITRITE,URINE NEGATIVE (NEGATIVE); OCCULT BLOOD,URINE LARGE (NEGATIVE); PROTEIN,URINE 500 mg/dL (NEGATIVE); UROBILINOGEN,URINE NORMAL (NEGATIVE)
[2024-01-29 14:59] LABS: BACTERIA,URINE MANY (NS); COLOR,URINE YELLOW (YELLOW); SQUAMOUS EPITHELIAL CELLS,UR OCCASIONAL (NS,R,O); WBC,URINE PACKED (0-5)
[2024-01-29 15:05] LABS: WHITE BLOOD CELL COUNT,WBC 44.7 x10-3/uL (3.0-10.3)
[2024-01-29 15:06] LABS: ALBUMIN 1.4 g/dL (3.5-5.2); CREATININE 4.4 mg/dL (0.55-1.02)
[2024-01-29 15:11] LABS: MONOCYTES PERCENT MAN 5 % (4-12); SEG NEUTROPHILS PERCENT MAN 95 % (46-82)
[2024-01-29 15:33] LABS: APPEARANCE,URINE TURBID (CLEAR)
[2024-01-29] MEDS: Sodium Chloride 0.9% 1,000 ML IV ONE (16:27)
== END 2024-01-29 19:18 ==
LOC: FB.ED 13:21
DX: N17.9 Acute kidney failure, unspecified (principal); N32.0 Bladder-neck obstruction; R82.81 Pyuria; R79.82 Elevated C-reactive protein (CRP); D72.829 Elevated white blood cell count, unspecified; Z86.16 Personal history of COVID-19
CPT/HCPCS: 36415; 80053; 81001; 83605; 85025; 86140; 87040; 87086; 87088; 87186; 96360; 99285; C1758; J7030